=== PATIENT | female | born 1940 | race Caucasian/White ===

== ENCOUNTER 2021-05-15 12:02 | Inpatient (IN) ==
[2021-05-15 14:07] LABS: ABS Eosinophils 0.1 10^3/ul (0-0.6); ABS Lymphocytes 1.3 10^3/ul (1.0-4.8); ABS Monocytes 0.5 10^3/ul (0-0.8); ABS Neutrophils 4.1 10^3/ul (1.5-7.7); Eosinophil % 1.9 %; Hematocrit 40 % (35-47); Hemoglobin 13.4 g/dL (12.0-16.0); Lymphocyte % 21.1 %; Mean Corpuscular HGB Conc 34 g/dL (31-36); Mean Corpuscular Hemoglobin 31 pg (27-31); Mean Corpuscular Volume 92 fL (80-97); Mean Platelet Volume 7.9 fL (7.4-10.4); Platelet Count 244 10^3/uL (150-450); Red Blood Count 4.33 10^6 /uL (3.70-4.87); Red Cell Distribution Width 14 % (10-15)
[2021-05-15 14:33] LABS: INR 1.08 (0.86-1.15)
[2021-05-15 14:43] LABS: Albumin 4.3 g/dL (3.2-5.2); Calcium 9.3 mg/dL (8.6-10.3); EGFR African American 94.5 (>60); EGFR Non-African American 78.1 (>60); Globulin 2.2 g/dL (2-4); Potassium 3.8 mmol/L (3.5-5.0); Total Bilirubin 0.5 mg/dL (0.2-1.0); Total Protein 6.5 g/dL (6.4-8.9)
[2021-05-15] MEDS ORDERED: Iodixanol (CONTRAST) 320 MG/ML 100 ML SDV IV ONE (14:50)
[2021-05-15] MEDS ORDERED: Albuterol HFA INHALER 8 gm MDI INH PRN (18:47)
[2021-05-15 19:28] LABS: HDL Cholesterol 62.2 mg/dL
[2021-05-16] MEDS: PITAVASTATIN 2 MG PO SCH ×2 (00:34→22:52)
[2021-05-16] MEDS: Dextran 70/Hypromellose Tears Eye Drops 15 ml BTL (for Artificials Tears) BOTH EYES PRN ×3 (00:48→22:48)
[2021-05-16] MEDS ORDERED: Regadenoson 0.4 MG/5 ML SYRINGE ONE (13:12)
[2021-05-16] MEDS: Calcium Polycarbophil 625mg TB PO SCH (14:55)
[2021-05-16] MEDS: Cholecalciferol (VIT D3) 1,000 unit TAB PO SCH (14:56)
[2021-05-16] MEDS: Potassium Chlor 20 meq TAB.ER PO SCH (14:57)
[2021-05-17 06:37] LABS: Calcium 9.3 mg/dL (8.6-10.3); EGFR African American 83.7 (>60); EGFR Non-African American 69.2 (>60); Magnesium 2.2 mg/dL (1.9-2.7); Potassium 3.8 mmol/L (3.5-5.0)
[2021-05-17] MEDS: Calcium Polycarbophil 625mg TB PO SCH (08:34)
[2021-05-17] MEDS: Cholecalciferol (VIT D3) 1,000 unit TAB PO SCH (08:34)
[2021-05-17] MEDS: Potassium Chlor 20 meq TAB.ER PO SCH (08:35)
[2021-05-17] MEDS ORDERED: Calcium Carb (TUMS) 500 mg CHEW TAB PO PRN (10:16)
[2021-05-17] MEDS ORDERED: Al Hydrox/Mg Hydrox/Simet LIQ 30 ML UDC PO PRN (10:30)
[2021-05-17 11:17] VITALS: BP 137/74
== END 2021-05-17 12:50 | disposition home or self-care (01) | DRG 203 ==
LOC: MEDTELE 12:02 → ED 12:02 → MEDTELE 23:23
PROVIDERS: ADMIT Student in an Organized Health Care Education/Training Program; ATTEND Internal Medicine